=== PATIENT | male | born 1995 | race Caucasian/White ===

== ENCOUNTER 2022-08-05 22:48 | Inpatient (IN) | payer OTHER, SELFPAY ==
[2022-08-05 22:57] VITALS: BP 136/98; PULSE 90; RESP 18; TEMP 36.7; O2SAT 96; BMI 25.0
[2022-08-06 00:23] LABS: MANUAL DIFF FLAG NO
[2022-08-06 00:25] LABS: Basophils Percent Auto 0.4 % (0-2); Eosinophils Absolute Auto 0.3 X10*3/uL (0.0-0.4); Eosinophils Percent Auto 2.5 % (0-4); Hematocrit 45.5 % (42.0-52.0); Hemoglobin 16.2 g/dl (14.0-18.0); Imm Gran Abs Auto 0.03 X10*3/uL (0.00-0.03); Imm Gran Pct Auto 0.3 % (0.0-0.4); Lymphocytes Absolute Auto 2.4 X10*3/uL (1.2-4.9); Lymphocytes Percent Auto 24.2 % (20-40); Mean Corpuscular HGB Conc 35.6 g/dl (31.0-36.0); Mean Corpuscular Hemoglobin 32.2 pg (27.0-33.0); Mean Corpuscular Volume 90.5 fL (80.0-98.0); Mean Platelet Volume 10.5 fL (9.4-12.4); Monocytes Absolute Auto 0.6 X10*3/uL (0.1-1.2); Monocytes Percent Auto 6.1 % (2-11); Neutrophils Absolute Auto 6.7 x10*3/uL (2.0-8.3); Neutrophils Percent Auto 66.5 % (45-73); Platelet Count 213 X10*3/uL (160-400); Red Blood Count 5.03 X10*6/uL (4.60-5.80); Red Cell Distribution Width 11.3 % (11.0-16.0)
[2022-08-06 00:30] LABS: Appearance Urine Clear; Color Urine Dark Yellow; Glucose Urine UA Negative (Negative); Leukocyte Esterase Urine Small (1+) (Negative); Nitrite Urine Negative (Negative); PH 5.5 (5.0-9.0); Specific Gravity - Urine >= 1.030 (1.005-1.025); UMIC TRIGGER UACC YES; Urine Blood Large (3+) (Negative); Urine Ketones Negative (Negative); Urine Protein 300 (3+) mg/dL (Neg-Trace)
[2022-08-06 00:39] LABS: Bacteria Urine Trace (None Seen); Hyaline Casts Urine 0-2 /LPF (0-2); Squamous Epithelial Cell Urine 0-2 /HPF (0-2); UACC Culture Trigger YES; WBC Urine 0-5 /HPF (0-5)
[2022-08-06 00:45] LABS: Alanine Aminotransferase 400 U/L (0-40); Albumin Level 4.6 g/dL (3.5-5.0); Alkaline Phosphatase 68 U/L (39-117); Anion Gap 15 (12-20); Aspartate Amino Transferase 1660 U/L (5-37); Bilirubin Total 0.7 mg/dL (0.0-1.0); Blood Urea Nitrogen 17 mg/dL (9-16); Calcium 9.5 mg/dL (8.4-10.2); Carbon Dioxide 27 mmol/L (22-29); Chloride 104 mmol/L (96-108); Creatinine Clr Calc Pharmacy 94.4; Estimated Glomerular Filt Rate > 60; Glucose Random 82 mg/dL (60-115); Potassium 4.2 mmol/L (3.3-5.1); Sodium 142 mmol/L (135-145); Total Protein 7.1 g/dL (6.5-8.0)
--- NOTE | 2022-08-06 00:48 | ED_ITS ---
HPI - General Adult General Chief complaint: Extremity Injury, Lower Stated complaint: sore swollen legs Time Seen by Provider: 08/06/22 00:27 Source: patient Mode of arrival: ambulatory Limitations: no limitations History of Present Illness HPI narrative: Patient comes emergency room complaining of 4 days of bilateral lower extremity pain and dark color urine. Patient states that 4 days ago, he had a very in [employer] lower extremity workout session. Patient states that the next day he woke up in a lot of pain, and has been able to barely walk because of it. Patient denies any injury. Related Data Allergies Allergy/AdvReac Type Severity Reaction Status Date / Time No Known Allergies Allergy Verified 08/05/22 22:56 [No Known Allergies*] Review of Systems Review of Systems: Constitutional : No Weight loss, No Fever, No Chills, No Night Sweats, No Fatigue, No Malaise ENT/Mouth : No Hearing loss, No Ear Pain, No Nasal Congestion, No Sinus Pain, No Hoarseness, No sore throat, No Rhinorrhea, No Swallowing Difficulty Eyes: No Eye Pain, No Swelling, No Redness, No Foreign Body, No Discharge, No Vision Changes Cardiovascular : No Chest Pain, No SOB, No Dyspnea on Exertion, No Orthopnea, No Edema, No Palpitations Respiratory : No Cough, No Sputum, No Wheezing, No Smoke Exposure, No Dyspnea Gastrointestinal : No Nausea, No Vomiting, No Diarrhea, No Constipation, No abdominal Pain, No Hematochezia, No Melena Genitourinary : Complaining of dark color urine, No Dysuria, No Urinary Frequency, No Hematuria, No Urinary Incontinence, No Urgency, No Flank Pain, No Urinary Flow Changes, No Hesitancy Musculoskeletal : Complaining of lower extremity myalgias bilaterally, especially thighs Skin : No Skin Lesions, No rash Neuro : No Weakness, No Numbness, No Paresthesias, No Loss of Consciousness, No Dizziness, No Headache Psych : No Anxiety/Panic, No Depression, No SI/HI/AH/VH, No Social Issues, Heme/Lymph: No Bruising, No Bleeding,No Lymphadenopathy Endocrine : No Polyuria, No Polydipsia, No Temperature Intolerance PMFSH Social History Social History Advance Directives: No Advance Directives Information Provided: Yes Physical Exam ED Vital Signs: Vital Signs - 24 hr 08/05/22 22:57 Temperature 98.1 F Pulse Rate 90 Respiratory Rate 18 Blood Pressure 136/98 H Pulse Oximetry 96 Oxygen Delivery Method Room Air BMI result Body Mass Index 25.0 Const Other: Appearance: Alert. Oriented X3. No acute distress. Eyes: Pupils equal, round and reactive to light. ENT: Pharynx normal. Neck: Normal inspection. Neck supple. No lymph nodes noted. No crepitus CVS: Normal heart rate and rhythm. Pulses normal. Normal S1 and S2 Respiratory: No respiratory distress. Breath sounds normal. No Wheezing. No rales Abdomen: Soft and nontender. No rigidity. No distention. Skin: Skin warm and dry. Normal skin color. Normal skin turgor. Extremities: No lower extremity edema. No Lacerations. No Rash Neuro: Oriented X 3. No motor deficit. No sensory deficit. Moving all extremities. No slurred speech. CN 2 through 12 grossly intact Psych: calm, cooperative, normal affect Course Course Course Narrative: -of patient's labs are pending. Given the patient's history, patient likely has rhabdomyolysis. Patient being started on IV fluids, morphine for the pain. Depending on the lab work, we will decide if patient may be discharged home or needs to be admitted for rhabdomyolysis Medical Decision Making Medical Decision Making [facility] Narrative: -patient has rhabdomyolysis without kidney injury. -CPK 42,670, AST 1660, ALT 400. Blood and protein present in the urine. Elevated LFTs secondary to rhabdomyolysis, hepatitis is not suspected -patient receiving IV fluids. Given 1 dose of morphine for pain. -I discussed the labs with the patient, agreeable to admission -discussed the patient with Dr. Goodwin, patient being admitted Differential Diagnosis Differential Diagnoses: The differential diagnosis associated with the presentation includes (Rhabdomyolysis, injury) Admission/Observation Consideration of admission/observation: Escalation of care including admission/observation considered Consult Healthcare Provider Management of the patient was discussed with: Hospitalist Lab Data [facility] Lab Attestation statement: I reviewed the patient's lab results. 08/06/22 00:19 08/06/22 00:19 Labs: Lab Results 08/06/22 08/06/22 08/06/22 Range/Units 00:19 00:19 00:24 WBC 10.0 (4.8-10.8) X10*3/uL RBC 5.03 (4.60-5.80) X10*6/uL Hgb 16.2 (14.0-18.0) g/dl Hct 45.5 (42.0-52.0) % MCV 90.5 (80.0-98.0) fL MCH 32.2 (27.0-33.0) pg MCHC 35.6 (31.0-36.0) g/dl RDW 11.3 (11.0-16.0) % Plt Count 213 (160-400) X10*3/uL MPV 10.5 (9.4-12.4) fL Immature Gran % (Auto) 0.3 (0.0-0.4) % Neut % (Auto) 66.5 (45-73) % Lymph % (Auto) 24.2 (20-40) % [place] % (Auto) 6.1 (2-11) % Eos % (Auto) 2.5 (0-4) % Baso % (Auto) 0.4 (0-2) % Lymph # (Auto) 2.4 (1.2-4.9) X10*3/uL [place] # (Auto) 0.6 (0.1-1.2) X10*3/uL Eos # (Auto) 0.3 (0.0-0.4) X10*3/uL Baso # (Auto) 0.0 (0.0-0.2) X10*3/uL Abs Immat Gran (auto) 0.03 (0.00-0.03) X10*3/uL Absolute Neuts (auto) 6.7 (2.0-8.3) x10*3/uL Absolute Nucleated RBC 0.000 (0.0-0.012) X10*3/uL Nucleated RBC % (auto) 0.0 (0.0-0.2) /100WBC Sodium 142 (135-145) mmol/L Potassium 4.2 (3.3-5.1) mmol/L Chloride 104 (96-108) mmol/L Carbon Dioxide 27 (22-29) mmol/L Anion Gap 15 (12-20) BUN 17 H (9-16) mg/dL Creatinine 1.04 (0.5-1.4) mg/dL Estim Creat Clear Calc 94.4 Estimated GFR > 60 Random Glucose 82 (60-115) mg/dL Calcium 9.5 (8.4-10.2) mg/dL Total Bilirubin 0.7 (0.0-1.0) mg/dL AST 1660 H (5-37) U/L ALT 400 H (0-40) U/L Alkaline Phosphatase 68 (39-117) U/L Total Creatine Kinase > 05487 H (38-174) U/L Total Protein 7.1 (6.5-8.0) g/dL Albumin 4.6 (3.5-5.0) g/dL Urine Color Dark Yellow Urine Appearance Clear Urine pH 5.5 (5.0-9.0) Ur Specific [place] >= 1.030 H (1.005-1.025) Urine Protein 300 (3+) H (Neg-Trace) mg/dL Urine Glucose (UA) Negative (Negative) mg/dL Urine Ketones Negative (Negative) mg/dL Urine Blood Large (3+) H (Negative) Urine Nitrite Negative (Negative) Ur Leukocyte Esterase Small (1+) H (Negative) Urine RBC 6-10 H (0-2) /HPF Urine WBC 0-5 (0-5) /HPF Ur Squamous Epith Cells 0-2 (0-2) /HPF Urine Bacteria Trace (None Seen) Hyaline Casts 0-2 (0-2) /LPF Critical Care Time Critical Care Time Critical Care Time: Yes Total Critical Care Time: 60 Attestation: Please follow-up with your primary care physician tomorrow. If you have any worsening or new symptoms, please return to the emergency room or call 911 Discharge Plan Discharge Clinical Impression: Rhabdomyolysis, Transaminitis Patient Disposition: Admitted As Inpatient
[2022-08-06] MEDS: Morphine Sulfate 4 MG/ML CARTRIDGE IVPUSH (01:30)
[2022-08-06] MEDS: 0.9 % Sodium Chloride 2,000 ML 999 ML IVCONT (01:30)
--- NOTE | 2022-08-06 01:38 | P.HPHOSP_ITS ---
History of Present Illness Date of Service: 08/06/22 Chief Complaint: thigh pain 27M no significant pmh presented with bilateral thigh pain. patient had intense work out about 4 days ptp, since then has been feeling more sore than usual post work out. started noticing dark urine, bilateral thigh pain worsened, difficulty ambulating. denies drug use, illness. in ED found to have cpk >40K, renal function normal. Review of Systems Review of Systems: Yes all other systems are reviewed and are negative PMFSH Social History Advance Directives: No Advance Directives Information Provided: Yes Meds Allergies Allergy/AdvReac Type Severity Reaction Status Date / Time No Known Allergies Allergy Verified 08/05/22 22:56 [No Known Allergies*] Active Medications: Current Medications Sodium Chloride (Ns) 2,000 mls @ 999 mls/hr IVCONT .Q2H1M ONE Stop: 08/06/22 02:47 Last Admin: 08/06/22 01:30 Dose: 999 mls/hr Sodium Bicarbonate 150 meq/ (Dextrose) 1,000 mls @ 200 mls/hr IV .Q5H JACQUELYN Sodium Chloride (0.9 % Sodium Chloride Flush 3 Ml Syringe) 3 ml IVFLUSH QSHIFT JACQUELYN Physical Exam Vital Signs and Narrative: Vital Signs: Last Vital Signs Temp 98.1 F 08/05/22 22:57 Pulse 90 08/05/22 22:57 Resp 18 08/05/22 22:57 BP 136/98 H 08/05/22 22:57 Pulse Ox 96 08/05/22 22:57 O2 Del Method Room Air 08/05/22 22:57 BMI result Body Mass Index 25.0 General: AO X 3, no acute distress Resp: CTA bilateral, no accessory muscles used CVS: S1,S2,RRR GI: soft, non tender, non distended Neuro: motor grossly weak Psych: appropriate affect, appropriate insight Results Labs 08/06/22 00:19 08/06/22 00:19 Labs: Laboratory Results - last 24 hr 08/06/22 08/06/22 08/06/22 00:19 00:19 00:24 MCV 90.5 MCH 32.2 MCHC 35.6 RDW 11.3 Plt Count 213 MPV 10.5 Immature Gran % (Auto) 0.3 Neut % (Auto) 66.5 Lymph % (Auto) 24.2 [place] % (Auto) 6.1 Eos % (Auto) 2.5 Baso % (Auto) 0.4 Lymph # (Auto) 2.4 [place] # (Auto) 0.6 Eos # (Auto) 0.3 Baso # (Auto) 0.0 Abs Immat Gran (auto) 0.03 Absolute Neuts (auto) 6.7 Absolute Nucleated RBC 0.000 Nucleated RBC % (auto) 0.0 Anion Gap 15 Estim Creat Clear Calc 94.4 Estimated GFR > 60 Random Glucose 82 Calcium 9.5 Total Bilirubin 0.7 AST 1660 H ALT 400 H Alkaline Phosphatase 68 Total Creatine Kinase > 83856 H Total Protein 7.1 Albumin 4.6 Urine Color Dark Yellow Urine Appearance Clear Urine pH 5.5 Ur Specific [place] >= 1.030 H Urine Protein 300 (3+) H Urine Glucose (UA) Negative Urine Ketones Negative Urine Blood Large (3+) H Urine Nitrite Negative Ur Leukocyte Esterase Small (1+) H Urine RBC 6-10 H Urine WBC 0-5 Ur Squamous Epith Cells 0-2 Urine Bacteria Trace Hyaline Casts 0-2 Assessment and Plan (1) Rhabdomyolysis: Status: Acute Plan 27M presented with bilateral thigh pain, found to have acute rhabdo acute rhabdomyolosis given 2L NS in ED, will start d5w with 150meq bicarb at 200cc/hr monitor bmp, cpk nephro eval low risk dvt full code patient with significant rhabdo, likely to take atleast 2 midnights of intense iv hydration to resolve. Time Spent With Patient Time: Total time managing care of this patient today ____ minutes. Quality Stroke Does the patient have a stroke diagnosis?: No VTE Prior VTE?: No VTE Risk Level:: Medical - low VTE Device Contraindication: Treatment Not Indicated VTE Drug Contraindication: Treatment Not Indicated
[2022-08-06 02:04] VITALS: BP 119/73; PULSE 64; RESP 17; TEMP 36.4; O2SAT 98
[2022-08-06] MEDS: Sodium Bicarbonate 8.4% 150 MEQ in Dextrose 5 % 850 ML 200 MEQ IV (02:24)
--- NOTE | 2022-08-06 07:14 | PC.NURSE ---
pharmacy called a 0715 for sodium bicarbonate infusion.
[2022-08-06 07:16] LABS: Alanine Aminotransferase 316 U/L (0-40); Albumin Level 3.4 g/dL (3.5-5.0); Alkaline Phosphatase 51 U/L (39-117); Anion Gap 9 (12-20); Aspartate Amino Transferase 1278 U/L (5-37); Bilirubin Direct 0.2 mg/dL (0.0-0.5); Bilirubin Total 0.7 mg/dL (0.0-1.0); Blood Urea Nitrogen 16 mg/dL (9-16); Calcium 8.1 mg/dL (8.4-10.2); Carbon Dioxide 34 mmol/L (22-29); Chloride 105 mmol/L (96-108); Creatinine Clr Calc Pharmacy 114.2; Estimated Glomerular Filt Rate > 60; Glucose Random 83 mg/dL (60-115); Sodium 144 mmol/L (135-145); Total Protein 5.3 g/dL (6.5-8.0)
[2022-08-06] MEDS: 0.9 % Sodium Chloride Flush 3 ML SYRINGE IVFLUSH ×3 (07:42→22:20)
--- NOTE | 2022-08-06 08:44 | PHA.MEDREC ---
Pharmacy Consult ? Medication Reconciliation Pharmacy has completed the medication reconciliation.
[2022-08-06] MEDS: 0.9 % Sodium Chloride 1,000 ML 200 ML IVCONT (09:51)
--- NOTE | 2022-08-06 10:36 | PM.EVENT ---
Event Note Date of Service: 08/06/22 Event Note: Seen and evaluated complaining of pain in both his thighs with decrease ROM No concern over compartment syndrome at this point Check viral panel and Phosphorus level nephro following Change IVF to NS 200cc\hr Time Spent With Patient Time: Total time managing care of this patient today ____ minutes.
--- NOTE | 2022-08-06 10:46 | PM.CNNEP ---
History of Present Illness Reason for Consult Consult date: 08/06/22 Chief Complaint Chief complaint: Rhabdo History of Present Illness Narrative: 27M no significant medical issues presented with bilateral thigh pain. He had intense work out about 4 days prior to hospital ER visit. Ever since his work out he has been feeling more sore than usual. He also noticed dark urine, with worsening bilateral thigh pain and difficulty ambulating. He denied drug use or recent viral illness or any other trauma . In the ER he was found to have CPK >40K with normal renal function. He was admitted for further management. Nephrology has been consulted to assist in his clinical management during his current hospital stay. Review of Systems Review of Systems Yes all other systems are reviewed and are negative [facility] Social History Social History Alcohol intake: never Patient Tobacco Use Status: Never used Tobacco Smoked in Last 30 Days: No Advance Directives: No Advance Directives Information Provided: Yes Meds Allergies Allergy/AdvReac Type Severity Reaction Status Date / Time No Known Allergies Allergy Verified 08/05/22 22:56 [No Known Allergies*] Active Medications: Current Medications Sodium Chloride (Ns) 1,000 mls @ 200 mls/hr IVCONT .Q5H [facility] Stop: 08/06/22 13:44 Last Admin: 08/06/22 09:51 Dose: 200 mls/hr Sodium Chloride (0.9 % Sodium Chloride Flush 3 Ml Syringe) 3 ml IVFLUSH QSHIFT [facility] Last Admin: 08/06/22 07:42 Dose: 3 ml Home Medications Medication Instructions Recorded Confirmed Last Taken Type No Known Home Meds 08/06/22 08/06/22 Unknown History Physical Exam Vital Signs: Last Vital Signs Temp 97.6 F 08/06/22 02:04 Pulse 64 08/06/22 02:04 Resp 17 08/06/22 02:04 BP 119/73 08/06/22 02:04 Pulse Ox 98 08/06/22 02:04 O2 Del Method Room Air 08/05/22 22:57 BMI result Body Mass Index 25.0 Const General: no acute distress Orientation/consciousness: patient oriented x3 Eyes EOM: EOMs intact bilaterally Neck Neck: Yes supple Resp Auscultation: diminished lung sounds Cardio Rate: regular rate GI Palpation (GI): Soft to palpation Skin General skin exam: no rashes or lesions noted Neuro General: patient oriented x3 and moves all extremities Extrem General: No edema Results Lab Results 08/06/22 00:19 08/06/22 06:05 Lab results: Chemistry 08/06/22 08/06/22 00:19 06:05 Sodium 142 144 Potassium 4.2 4.0 Carbon Dioxide 27 34 H BUN 17 H 16 Creatinine 1.04 0.86 Calcium 9.5 8.1 L D Hematology 08/06/22 00:19 WBC 10.0 Hgb 16.2 Plt Count 213 Urinalysis 08/06/22 00:24 Urine Color Dark Yellow Urine Appearance Clear Urine pH 5.5 Ur Specific [place] >= 1.030 H Urine Protein 300 (3+) H Urine Glucose (UA) Negative Urine Ketones Negative Urine Blood Large (3+) H Urine Nitrite Negative Ur Leukocyte Esterase Small (1+) H Urine RBC 6-10 H Urine WBC 0-5 Ur Squamous Epith Cells 0-2 Hyaline Casts 0-2 Assessment and Plan (1) Rhabdomyolysis: Status: Acute Time Spent With Patient Time: Rhabdomyolysis following intense work out Renal function normal; Was given NaHCO3 Continue current dose of saline/ hour Cocaine negative; Shall check viral panel/ Phos levels Urine output good. Shall closely follow up Procedures Date of Service Date of Service: 08/06/22
[2022-08-06 12:14] VITALS: BP 116/68; PULSE 55; RESP 16; TEMP 36.4; O2SAT 99
[2022-08-06] MEDS: Morphine Sulfate 2 MG/ML CARTRIDGE IVPUSH (12:56)
--- NOTE | 2022-08-06 13:27 | MHC.CM.PN ---
pt is indepenent lives with mother had no previous serviuce is not covid vax dc plan home no servceis
[2022-08-06 15:29] VITALS: BP 109/59; PULSE 60; RESP 18; TEMP 36.4; O2SAT 97
[2022-08-06 18:58] VITALS: BP 110/62; PULSE 65; RESP 18; TEMP 36.4; O2SAT 98
[2022-08-06] MEDS: Acetaminophen 325 MG TABLET 650 MG PO (22:19)
[2022-08-07 03:47] VITALS: BP 110/59; PULSE 52; RESP 18; TEMP 36.7; O2SAT 98
--- NOTE | 2022-08-07 05:01 | PC.NURSE ---
Pt still c/o leg cramps and stiffness but refused morphine, offered Tylenol po and complied, Dr. Hagen was informed, Tylenol was ordered and given, no further complaints after.
[2022-08-07 06:24] LABS: Alanine Aminotransferase 388 U/L (0-40); Albumin Level 3.8 g/dL (3.5-5.0); Alkaline Phosphatase 50 U/L (39-117); Anion Gap 13 (12-20); Aspartate Amino Transferase 1290 U/L (5-37); Bilirubin Direct 0.3 mg/dL (0.0-0.5); Bilirubin Total 1.1 mg/dL (0.0-1.0); Blood Urea Nitrogen 10 mg/dL (9-16); Calcium 9.2 mg/dL (8.4-10.2); Carbon Dioxide 29 mmol/L (22-29); Chloride 105 mmol/L (96-108); Creatinine Clr Calc Pharmacy 118.3; Estimated Glomerular Filt Rate > 60; Glucose Fasting 92 mg/dL (60-99); Potassium 4.7 mmol/L (3.3-5.1); Sodium 142 mmol/L (135-145); Total Protein 5.8 g/dL (6.5-8.0)
[2022-08-07 06:25] LABS: Hemoglobin 14.9 g/dl (14.0-18.0); Mean Corpuscular HGB Conc 35.5 g/dl (31.0-36.0); Mean Corpuscular Hemoglobin 32.3 pg (27.0-33.0); Mean Corpuscular Volume 91.1 fL (80.0-98.0); Mean Platelet Volume 11.1 fL (9.4-12.4); Platelet Count 186 X10*3/uL (160-400); Red Blood Count 4.61 X10*6/uL (4.60-5.80); Red Cell Distribution Width 11.2 % (11.0-16.0)
[2022-08-07 08:08] VITALS: BP 106/71; PULSE 65; RESP 16; TEMP 36.6; O2SAT 99
--- NOTE | 2022-08-07 10:57 | HO.PM.IMPN ---
Subjective Subjective Date of Service: 08/07/22 Interval History: seen and evaluated complaining of pain in thighs but overall improved CPK still significantly elevated No other overnight events Review of Systems Review of Systems: Yes all other systems are reviewed and are negative Physical Exam Vital Signs: Vital Signs: Last Vital Signs Temp 97.8 F 08/07/22 08:08 Pulse 65 08/07/22 08:08 Resp 16 08/07/22 08:08 BP 106/71 08/07/22 08:08 Pulse Ox 99 08/07/22 08:08 O2 Del Method Room Air 08/07/22 08:08 BMI result Body Mass Index 25.0 Const: Other: Constitutional : Awake, interactive, not in distress Neck : Normal inspection, Supple Cardiovascular : RRR, no JVP, no lower extremity edema Respiratory : good bilateral air entry, no crackles, wheezes or rhonchi Gastrointestinal: soft, lax, Normal bowel sounds, Non tender Skin : Warm, Dry Muscular: mild tenderness over thighs bilaterall but no stiffness with improved ROM Neurological : Alert & oriented x3, No focal deficit Objective Data Active Medications Sodium Chloride (0.9 % Sodium Chloride Flush 3 Ml Syringe) 3 ml IVFLUSH QSHIFT [facility] Last Admin: 08/07/22 09:42 Dose: Not Given Documented By: [facility] Non-Admin Reason: IV Running Tramadol HCl (Tramadol Hcl 50 Mg Tablet) 25 mg PO Q4H PRN PRN Reason: Pain, Moderate (Pain Scale 4-6 Labs 08/07/22 05:21 08/07/22 05:21 Labs: Laboratory Results - last 24 hr 08/06/22 08/07/22 08/07/22 06:05 05:21 05:21 MCV 91.1 MCH 32.3 MCHC 35.5 RDW 11.2 Plt Count 186 MPV 11.1 Absolute Nucleated RBC 0.000 Nucleated RBC % (auto) 0.0 Anion Gap 13 Estim Creat Clear Calc 118.3 Estimated GFR > 60 Fasting Glucose 92 Calcium 9.2 D Phosphorus 4.0 Total Bilirubin 1.1 H Direct Bilirubin 0.3 AST 1290 H ALT 388 H Alkaline Phosphatase 50 Total Creatine Kinase > 21100 H Total Protein 5.8 L Albumin 3.8 Microbiology Microbiology Results: Microbiology 08/06/22 Unknown Urine Culture - Final Urine clean catch - Urine [place] No growth. Assessment and Plan (1) Rhabdomyolysis: Status: Acute (2) Transaminitis: Status: Acute Plan 27M presented with bilateral thigh pain, found to have acute rhabdo acute rhabdomyolosis CPK still >64589 continue IVF Cr stable nephro following monitor BMP Transaminitis from rhabdo stable. continue to monitor LFT low risk dvt, early ambulation full code patient with significant rhabdo, likely to take atleast 2 midnights of intense iv hydration to resolve. Time Spent With Patient Time: Total time managing care of this patient today ____ minutes. Quality Stroke Does the patient have a stroke diagnosis?: No VTE Prior VTE?: No VTE Risk Level:: Medical - low VTE Device Contraindication: Treatment Not Indicated VTE Drug Contraindication: Treatment Not Indicated
--- NOTE | 2022-08-07 11:25 | PM.PNNEP ---
Subjective Subjective Date of Service: 08/07/22 Interval history: Seen AM. All recent data reviewed Physical Exam Vital Signs: Vital Signs: Last Vital Signs Temp 97.8 F 08/07/22 08:08 Pulse 65 08/07/22 08:08 Resp 16 08/07/22 08:08 BP 106/71 08/07/22 08:08 Pulse Ox 99 08/07/22 08:08 O2 Del Method Room Air 08/07/22 08:08 BMI result Body Mass Index 25.0 Const: General: comfortable Orientation/consciousness: patient oriented x3 Eyes: EOM: EOMs intact bilaterally Neck: Neck: Yes supple Resp: Auscultation: diminished lung sounds Cardio: Rate: regular rate GI: Palpation (GI): Soft to palpation Skin: General skin exam: no rashes or lesions noted Neuro: General: patient oriented x3 and moves all extremities Objective Data Labs 08/07/22 05:21 08/07/22 05:21 Labs: Laboratory Results - last 24 hr 08/07/22 08/07/22 05:21 05:21 WBC 7.0 RBC 4.61 Hgb 14.9 Hct 42.0 MCV 91.1 MCH 32.3 MCHC 35.5 RDW 11.2 Plt Count 186 MPV 11.1 Absolute Nucleated RBC 0.000 Nucleated RBC % (auto) 0.0 Sodium 142 Potassium 4.7 Chloride 105 Carbon Dioxide 29 Anion Gap 13 BUN 10 Creatinine 0.83 Estim Creat Clear Calc 118.3 Estimated GFR > 60 Fasting Glucose 92 Calcium 9.2 D Total Bilirubin 1.1 H Direct Bilirubin 0.3 AST 1290 H ALT 388 H Alkaline Phosphatase 50 Total Creatine Kinase > 14891 H Total Protein 5.8 L Albumin 3.8 Microbiology Microbiology Results: Microbiology 08/06/22 Unknown Urine clean catch - Urine [place] Urine Culture - Final No growth. Procedures Date of Service Date of Service: 08/07/22 Assessment & Plan Assessment and plan (1) Rhabdomyolysis: Status: Acute Assessment and Plan: Rhabdomyolysis following intense work out Renal function normal; Was given NaHCO3 initially Continue current dose of saline/ hour Cocaine negative; Urine output good Shall closely follow up Progress Note: Quality Stroke Does the patient have a stroke diagnosis?: No
[2022-08-07] MEDS: 0.9 % Sodium Chloride 1,000 ML 200 ML IVCONT (13:01)
[2022-08-07 15:48] VITALS: BP 120/58; PULSE 62; RESP 17; TEMP 37.1; O2SAT 98
[2022-08-07 19:34] VITALS: BP 128/69; PULSE 95; RESP 16; TEMP 36.7; O2SAT 97
[2022-08-07] MEDS: traMADoL HCL 50 MG TABLET 25 MG PO (20:01)
[2022-08-07] MEDS: 0.9 % Sodium Chloride 1,000 ML 150 ML IVCONT (22:18)
[2022-08-08 03:26] VITALS: BP 109/52; PULSE 53; RESP 16; TEMP 36.1; O2SAT 99
[2022-08-08 04:18] LABS: HBS Num1 0.32 mIU/mL (0-7.99); HBc Num1 0.04 S/CO (0.00-0.79); HBsAGNum1 0.39 S/CO (0.00-0.99); Hepatitis A Antibody IgM 0.17 Index (0-0.79); Hepatitis B Core Antibody Nonreactive (Nonreactive); Hepatitis B Surface Antigen Negative (Negative); ~HepC Num1 0.11 S/CO (0.00-0.79); ~Hepatitis A Antibody IgM Nonreactive (Nonreactive); ~Hepatitis B Surface Antibody NONREACTIVE (Nonreactive); ~Hepatitis C Antibody Nonreactive (Nonreactive)
[2022-08-08] MEDS: 0.9 % Sodium Chloride 1,000 ML 150 ML IVCONT ×3 (04:37→19:50)
[2022-08-08] MEDS: traMADoL HCL 50 MG TABLET 25 MG PO ×2 (06:05→22:06)
[2022-08-08 07:29] LABS: Alanine Aminotransferase 352 U/L (0-40); Albumin Level 3.6 g/dL (3.5-5.0); Alkaline Phosphatase 46 U/L (39-117); Anion Gap 8 (12-20); Aspartate Amino Transferase 908 U/L (5-37); Bilirubin Direct 0.3 mg/dL (0.0-0.5); Bilirubin Total 1.1 mg/dL (0.0-1.0); Blood Urea Nitrogen 11 mg/dL (9-16); Calcium 8.9 mg/dL (8.4-10.2); Carbon Dioxide 31 mmol/L (22-29); Chloride 107 mmol/L (96-108); Creatinine Clr Calc Pharmacy 112.9; Estimated Glomerular Filt Rate > 60; Glucose Random 85 mg/dL (60-115); Potassium 4.4 mmol/L (3.3-5.1); Sodium 142 mmol/L (135-145); Total Protein 5.7 g/dL (6.5-8.0)
[2022-08-08 07:54] VITALS: BP 117/61; PULSE 57; RESP 18; TEMP 36.7; O2SAT 98
--- NOTE | 2022-08-08 09:50 | P.PNIM_ITS ---
Subjective Subjective Date of Service: 08/08/22 Interval History: still with thigh pain, improving Physical Exam Vital Signs: Vital Signs: Last Vital Signs Temp 98.1 F 08/08/22 07:54 Pulse 57 08/08/22 07:54 Resp 18 08/08/22 07:54 BP 117/61 08/08/22 07:54 Pulse Ox 98 08/08/22 07:54 O2 Del Method Room Air 08/08/22 07:54 O2 Flow Rate 97 08/07/22 19:34 BMI result Body Mass Index 25.0 General: AO X 3, no acute distress Resp: CTA bilateral, no accessory muscles used CVS: S1,S2,RRR GI: soft, non tender, non distended Neuro: motor grossly intact, alert Psych: appropriate affect, appropriate insight Objective Data Active Medications Sodium Chloride (Ns) 1,000 mls @ 150 mls/hr IVCONT .Q6H40M [facility] Stop: 08/09/22 04:42 Last Admin: 08/08/22 04:37 Dose: 150 mls/hr Documented By: ELEAZAR Sodium Chloride (0.9 % Sodium Chloride Flush 3 Ml Syringe) 3 ml IVFLUSH [facility] Last Admin: 08/08/22 06:32 Dose: Not Given Documented By: [facility] Non-Admin Reason: IV Running Tramadol HCl (Tramadol Hcl 50 Mg Tablet) 25 mg PO Q4H PRN PRN Reason: Pain, Moderate (Pain Scale 4-6 Last Admin: 08/08/22 06:05 Dose: 25 mg Documented By: ELEAZAR Labs 08/07/22 05:21 08/08/22 06:05 Labs: Laboratory Results - last 24 hr 08/07/22 08/08/22 08/08/22 13:23 06:05 06:05 Anion Gap Cancelled 8 L Estim Creat Clear Calc Cancelled 112.9 Estimated GFR Cancelled > 60 Random Glucose Cancelled 85 Calcium Cancelled 8.9 Total Bilirubin 1.1 H Direct Bilirubin 0.3 AST 908 H ALT 352 H Alkaline Phosphatase 46 Total Creatine Kinase 14455 H Total Protein 5.7 L Albumin 3.6 Hepatitis A IgM Ab Nonreactive Hep Bs Antigen Negative Hep Bs Antibody NONREACTIVE Hep B Core Total Ab Nonreactive Hepatitis C Ab (EIA) Nonreactive Microbiology Microbiology Results: Microbiology 08/06/22 Unknown Urine Culture - Final Urine clean catch - Urine [place] No growth. Assessment and Plan (1) Rhabdomyolysis: Status: Acute (2) Transaminitis: Status: Acute Plan 27M presented with bilateral thigh pain, found to have acute rhabdo acute rhabdomyolosis CPK 06754 (previous >42K continue IVF Cr stable nephro following monitor BMP, cpk low risk dvt, early ambulation full code reason for continued hospitalization: aggressive iv hydration, risk for jerilyn with rhabdo Time Spent With Patient Time: Total time managing care of this patient today ____ minutes. Quality Stroke Does the patient have a stroke diagnosis?: No VTE Prior VTE?: No VTE Risk Level:: Medical - low VTE Device Contraindication: Treatment Not Indicated VTE Drug Contraindication: Treatment Not Indicated
--- NOTE | 2022-08-08 12:36 | PM.PNNEP ---
Subjective Subjective Date of Service: 08/08/22 Interval history: still with thigh pain, improving; Renal function normal Physical Exam Vital Signs: Vital Signs: Last Vital Signs Temp 98.1 F 08/08/22 07:54 Pulse 57 08/08/22 07:54 Resp 18 08/08/22 07:54 BP 117/61 08/08/22 07:54 Pulse Ox 98 08/08/22 07:54 O2 Del Method Room Air 08/08/22 07:54 O2 Flow Rate 97 08/07/22 19:34 BMI result Body Mass Index 25.0 Const: General: no acute distress Orientation/consciousness: patient oriented x3 Eyes: EOM: EOMs intact bilaterally Neck: Neck: Yes supple Resp: Auscultation: diminished lung sounds Cardio: Rate: regular rate GI: Palpation (GI): Soft to palpation Neuro: General: patient oriented x3 and moves all extremities Objective Data Labs 08/07/22 05:21 08/08/22 06:05 Labs: Laboratory Results - last 24 hr 08/07/22 08/08/22 08/08/22 13:23 06:05 06:05 Sodium Cancelled 142 Potassium Cancelled 4.4 Chloride Cancelled 107 Carbon Dioxide Cancelled 31 H Anion Gap Cancelled 8 L BUN Cancelled 11 Creatinine Cancelled 0.87 Estim Creat Clear Calc Cancelled 112.9 Estimated GFR Cancelled > 60 Random Glucose Cancelled 85 Calcium Cancelled 8.9 Total Bilirubin 1.1 H Direct Bilirubin 0.3 AST 908 H ALT 352 H Alkaline Phosphatase 46 Total Creatine Kinase 42408 H Total Protein 5.7 L Albumin 3.6 Hepatitis A IgM Ab Nonreactive Hep Bs Antigen Negative Hep Bs Antibody NONREACTIVE Hep B Core Total Ab Nonreactive Hepatitis C Ab (EIA) Nonreactive Microbiology Microbiology Results: Microbiology 08/06/22 Unknown Urine clean catch - Urine [place] Urine Culture - Final No growth. Procedures Date of Service Date of Service: 08/08/22 Assessment & Plan Assessment and plan (1) Rhabdomyolysis: Status: Acute Assessment and Plan: Rhabdomyolysis following intense work out Renal function normal; Was given NaHCO3 initially Continue current dose of saline/ hour Cocaine negative; Urine output good Shall closely follow up Progress Note: Quality Stroke Does the patient have a stroke diagnosis?: No
--- NOTE | 2022-08-08 14:41 | MHC.CM.PN ---
per rounds pt not ready for dc dc plan remains home
[2022-08-08 15:24] VITALS: BP 128/60; PULSE 60; RESP 15; TEMP 36.4; O2SAT 99
[2022-08-08 19:33] VITALS: BP 127/60; PULSE 68; RESP 16; TEMP 36.4; O2SAT 99
[2022-08-09] MEDS: 0.9 % Sodium Chloride 1,000 ML 150 ML IVCONT ×4 (02:19→23:24)
[2022-08-09 03:21] VITALS: BP 118/58; PULSE 55; RESP 14; TEMP 36; O2SAT 98
[2022-08-09 07:21] LABS: Anion Gap 13 (12-20); Blood Urea Nitrogen 10 mg/dL (9-16); Carbon Dioxide 27 mmol/L (22-29); Chloride 107 mmol/L (96-108); Creatinine Clr Calc Pharmacy 136.4; Estimated Glomerular Filt Rate > 60; Glucose Fasting 83 mg/dL (60-99); Potassium 3.8 mmol/L (3.3-5.1); Sodium 143 mmol/L (135-145)
[2022-08-09 07:50] VITALS: BP 118/68; PULSE 53; RESP 18; TEMP 36.3; O2SAT 97
--- NOTE | 2022-08-09 09:21 | HO.PM.IMPN ---
Subjective Subjective Date of Service: 08/09/22 Interval History: still with thigh pain, improving Physical Exam Vital Signs: Vital Signs: Last Vital Signs Temp 97.3 F 08/09/22 07:50 Pulse 53 08/09/22 07:50 Resp 18 08/09/22 07:50 BP 118/68 08/09/22 07:50 Pulse Ox 97 08/09/22 07:50 O2 Del Method Room Air 08/09/22 07:50 O2 Flow Rate 97 08/07/22 19:34 BMI result Body Mass Index 25.0 Const: General: no acute distress Orientation/consciousness: patient oriented x3 Eyes: EOM: EOMs intact bilaterally Neck: Neck: Yes supple Resp: Auscultation: diminished lung sounds Cardio: Rate: regular rate GI: Palpation (GI): Soft to palpation Neuro: General: patient oriented x3 and moves all extremities Objective Data Active Medications Sodium Chloride (0.9 % Sodium Chloride Flush 3 Ml Syringe) 3 ml IVFLUSH QSHIFT [facility] Last Admin: 08/09/22 09:00 Dose: Not Given Documented By: OBDULIO Non-Admin Reason: IV Running Tramadol HCl (Tramadol Hcl 50 Mg Tablet) 25 mg PO Q4H PRN PRN Reason: Pain, Moderate (Pain Scale 4-6 Last Admin: 08/08/22 22:06 Dose: 25 mg Documented By: ELEAZAR Labs 08/07/22 05:21 08/09/22 05:38 Labs: Laboratory Results - last 24 hr 08/09/22 05:38 Anion Gap 13 Estim Creat Clear Calc 136.4 Estimated GFR > 60 Fasting Glucose 83 Calcium 9.0 Total Creatine Kinase 85761 H Assessment and Plan (1) Rhabdomyolysis: Status: Acute (2) Transaminitis: Status: Deleted Plan 27M presented with bilateral thigh pain, found to have acute rhabdo acute rhabdomyolosis CPK about 22K (previous >42K continue IVF Cr stable nephro following monitor BMP, cpk low risk dvt, early ambulation full code reason for continued hospitalization: aggressive iv hydration, risk for jerilyn with rhabdo Time Spent With Patient Time: Total time managing care of this patient today ____ minutes. Quality Stroke Does the patient have a stroke diagnosis?: No VTE Prior VTE?: No VTE Risk Level:: Medical - low VTE Device Contraindication: Treatment Not Indicated VTE Drug Contraindication: Treatment Not Indicated
--- NOTE | 2022-08-09 11:01 | PM.PNNEP ---
Subjective Subjective Date of Service: 08/09/22 Interval history: Feels improved. CPK improving; Renal function remains normal Physical Exam Vital Signs: Vital Signs: Last Vital Signs Temp 97.3 F 08/09/22 07:50 Pulse 53 08/09/22 07:50 Resp 18 08/09/22 07:50 BP 118/68 08/09/22 07:50 Pulse Ox 97 08/09/22 07:50 O2 Del Method Room Air 08/09/22 07:50 O2 Flow Rate 97 08/07/22 19:34 BMI result Body Mass Index 25.0 Const: General: comfortable Orientation/consciousness: patient oriented x3 Eyes: EOM: EOMs intact bilaterally Neck: Neck: Yes supple Resp: Auscultation: diminished lung sounds Cardio: Rate: regular rate GI: Palpation (GI): Soft to palpation Skin: General skin exam: no rashes or lesions noted Neuro: General: patient oriented x3 and moves all extremities Objective Data Labs 08/07/22 05:21 08/09/22 05:38 Labs: Laboratory Results - last 24 hr 08/09/22 05:38 Sodium 143 Potassium 3.8 Chloride 107 Carbon Dioxide 27 Anion Gap 13 BUN 10 Creatinine 0.72 Estim Creat Clear Calc 136.4 Estimated GFR > 60 Fasting Glucose 83 Calcium 9.0 Total Creatine Kinase 45043 H Microbiology Microbiology Results: Microbiology 08/06/22 Unknown Urine clean catch - Urine villa top Urine Culture - Final No growth. Procedures Date of Service Date of Service: 08/09/22 Assessment & Plan Assessment and plan (1) Rhabdomyolysis: Status: Acute Assessment and Plan: Rhabdomyolysis following intense work out Renal function normal; Was given NaHCO3 initially Continue current dose of saline/ hour Cocaine negative; Urine output good CPK improving; Likely could be D/Masood tomorrow Shall closely follow up Progress Note: Quality Stroke Does the patient have a stroke diagnosis?: No
[2022-08-09 15:21] VITALS: BP 119/55; PULSE 60; RESP 18; TEMP 36.4; O2SAT 99
[2022-08-09 20:00] VITALS: BP 127/65; PULSE 85; RESP 18; TEMP 37.1; O2SAT 97
[2022-08-10 04:00] VITALS: BP 128/75; PULSE 66; RESP 18; TEMP 36.7; O2SAT 98
[2022-08-10] MEDS: 0.9 % Sodium Chloride 1,000 ML 150 ML IVCONT ×3 (05:24→17:29)
[2022-08-10 05:31] LABS: Anion Gap 9 (12-20); Blood Urea Nitrogen 10 mg/dL (9-16); Carbon Dioxide 29 mmol/L (22-29); Chloride 107 mmol/L (96-108); Creatinine Clr Calc Pharmacy 129.2; Estimated Glomerular Filt Rate > 60; Glucose Fasting 92 mg/dL (60-99); Potassium 3.9 mmol/L (3.3-5.1); Sodium 141 mmol/L (135-145)
[2022-08-10 08:09] VITALS: BP 122/64; PULSE 56; RESP 16; TEMP 36.8; O2SAT 98
--- NOTE | 2022-08-10 09:06 | PM.PNNEP ---
Subjective Subjective Date of Service: 08/10/22 Interval history: Feels improved. CPK improving; Renal function remains normal Physical Exam Vital Signs: Vital Signs: Last Vital Signs Temp 98.3 F 08/10/22 08:09 Pulse 56 08/10/22 08:09 Resp 16 08/10/22 08:09 BP 122/64 08/10/22 08:09 Pulse Ox 98 08/10/22 08:09 O2 Del Method Room Air 08/10/22 08:09 O2 Flow Rate 97 08/07/22 19:34 BMI result Body Mass Index 25.0 Const: Other: Constitutional : Awake, interactive, not in distress Neck : Normal inspection, Supple Cardiovascular : RRR, no JVP, no lower extremity edema Respiratory : good bilateral air entry, no crackles, wheezes or rhonchi Gastrointestinal: soft, lax, Normal bowel sounds, Non tender Skin : Warm, Dry Muscular: mild tenderness over thighs bilaterall but no stiffness with improved ROM Neurological : Alert & oriented x3, No focal deficit Objective Data Labs 08/07/22 05:21 08/10/22 04:41 Labs: Laboratory Results - last 24 hr 08/10/22 04:41 Sodium 141 Potassium 3.9 Chloride 107 Carbon Dioxide 29 Anion Gap 9 L BUN 10 Creatinine 0.76 Estim Creat Clear Calc 129.2 Estimated GFR > 60 Fasting Glucose 92 Calcium 9.0 Total Creatine Kinase 05736 H Microbiology Microbiology Results: Microbiology 08/06/22 Unknown Urine clean catch - Urine villa top Urine Culture - Final No growth. Procedures Date of Service Date of Service: 08/10/22 Assessment & Plan Assessment and plan (1) Rhabdomyolysis: Status: Acute Assessment and Plan: Rhabdomyolysis following intense work out Renal function normal; Was given NaHCO3 initially Continue current dose of saline/ hour Cocaine negative; Urine output good CPK improving; OK to DC IVF DC planning Time Spent With Patient Time: Total time managing care of this patient today ____ minutes. Progress Note: Quality Stroke Does the patient have a stroke diagnosis?: No
--- NOTE | 2022-08-10 09:15 | HO.PM.IMPN ---
Subjective Subjective Date of Service: 08/10/22 Interval History: improved Physical Exam Vital Signs: Vital Signs: Last Vital Signs Temp 98.3 F 08/10/22 08:09 Pulse 56 08/10/22 08:09 Resp 16 08/10/22 08:09 BP 122/64 08/10/22 08:09 Pulse Ox 98 08/10/22 08:09 O2 Del Method Room Air 08/10/22 08:09 O2 Flow Rate 97 08/07/22 19:34 BMI result Body Mass Index 25.0 General: AO X 3, no acute distress Resp: CTA bilateral, no accessory muscles used CVS: S1,S2,RRR GI: soft, non tender, non distended Neuro: motor grossly intact, alert Psych: appropriate affect, appropriate insight Objective Data Active Medications Sodium Chloride (Ns) 1,000 mls @ 150 mls/hr IVCONT .Q6H40M [facility] Last Admin: 08/10/22 05:24 Dose: 150 mls/hr Documented By: BRINA Sodium Chloride (0.9 % Sodium Chloride Flush 3 Ml Syringe) 3 ml IVFLUSH QSHIFT [facility] Last Admin: 08/10/22 07:56 Dose: Not Given Documented By: BRITTA Non-Admin Reason: IV Running Tramadol HCl (Tramadol Hcl 50 Mg Tablet) 25 mg PO Q4H PRN PRN Reason: Pain, Moderate (Pain Scale 4-6 Last Admin: 08/08/22 22:06 Dose: 25 mg Documented By: ELEAZAR Labs 08/07/22 05:21 08/10/22 04:41 Labs: Laboratory Results - last 24 hr 08/10/22 04:41 Anion Gap 9 L Estim Creat Clear Calc 129.2 Estimated GFR > 60 Fasting Glucose 92 Calcium 9.0 Total Creatine Kinase 19476 H Assessment and Plan (1) Rhabdomyolysis: Status: Acute (2) Transaminitis: Status: Deleted Plan 27M presented with bilateral thigh pain, found to have acute rhabdo acute rhabdomyolosis CPK about 13K (previous >42K), goal <10K for discharge continue IVF Cr stable nephro following monitor BMP, cpk low risk dvt, early ambulation full code reason for continued hospitalization: aggressive iv hydration, risk for jerilyn with rhabdo Time Spent With Patient Time: Total time managing care of this patient today ____ minutes. Quality Stroke Does the patient have a stroke diagnosis?: No VTE Prior VTE?: No VTE Risk Level:: Medical - low VTE Device Contraindication: Treatment Not Indicated VTE Drug Contraindication: Treatment Not Indicated
[2022-08-10 20:00] VITALS: BP 130/81; PULSE 52; RESP 18; TEMP 36.9; O2SAT 99
[2022-08-11] MEDS: 0.9 % Sodium Chloride 1,000 ML 150 ML IVCONT ×2 (00:20→06:27)
[2022-08-11 03:12] VITALS: BP 122/63; PULSE 57; RESP 16; TEMP 36.2; O2SAT 99
--- NOTE | 2022-08-11 07:56 | PM.DS ---
DS: Providers Provider Date of Service: 08/11/22 Date of admission: 08/06/22 01:26 Primary care physician: Shalini Hernandez NP Consults: 08/06/22 01:26 Consult to Nephrology Routine Consulting Provider: Gallo Sumner Reason for consultation: rhabdo DS: Diagnosis Discharge Diagnosis (1) Rhabdomyolysis: Status: Acute DS: Summary Hospital Course Hospital Course: from initial hpi: Chief Complaint: thigh pain 27M no significant pmh presented with bilateral thigh pain. patient had intense work out about 4 days ptp, since then has been feeling more sore than usual post work out. started noticing dark urine, bilateral thigh pain worsened, difficulty ambulating. denies drug use, illness. in ED found to have cpk >40K, renal function normal. hospital course: patient was admitted with acute rhabdomyolosis. he was treated with aggressive IV hydration. his renal function remained normal throughout admission. at time of discharge cpk is about 7000. muscle soreness improved. patient will be discharged home and should continue to drink plenty of fluids. Time Spent with Patient Time attestation: Total time managing care of this patient today ____ minutes. Discharge coordination time: Greater than 30 minutes Quality: Safe Use of Opioids Does Pt have an Active Cancer Diagnosis on the Problem List?: No Quality: Stroke Does the patient have a stroke diagnosis?: No Physical Exam Vital Signs: Vital Signs: Last Vital Signs Temp 97.2 F 08/11/22 03:12 Pulse 57 08/11/22 03:12 Resp 16 08/11/22 03:12 BP 122/63 08/11/22 03:12 Pulse Ox 99 08/11/22 03:12 O2 Del Method Room Air 08/11/22 03:12 O2 Flow Rate 97 08/07/22 19:34 BMI result Body Mass Index 25.0 General: AO X 3, no acute distress Resp: CTA bilateral, no accessory muscles used CVS: S1,S2,RRR GI: soft, non tender, non distended Neuro: motor grossly intact, alert Psych: appropriate affect, appropriate insight DS: Data Data Completed and Pending Labs on day of discharge: Laboratory Results - last 24 hr 08/11/22 06:09 Total Creatine Kinase 7754 H Discharge Plan Discharge Anticipated Discharge Date/Time: 08/11/22 07:55 Patient Disposition: Home, Self-Care Discharge Diagnosis: rhabdo Referrals: Shalini Hernandez NP [Primary Care Provider] - 1 Week Discharge Medications: No Action No Known Home Meds Discharge Orders: Discharge Order (Routine); Ordered 08/11/22 Ordered By: Yonatan Goodwin Diet: Advance to usual diet Activity on Discharge: As tolerated Stand Alone Forms: Patient Portal Discharge page Care Plan Goals: prevent kidney damage Health Concerns: rhabdo Plan of Treatment: drink plenty of fluids Assessment: see above
[2022-08-11 07:58] VITALS: BP 126/64; PULSE 65; RESP 16; TEMP 36.3; O2SAT 99
--- NOTE | 2022-08-11 09:29 | MHC.CM.NN ---
PATIENT IS DC HOME - SELF CARE RN AWARE OF PLAN.
--- NOTE | 2022-08-11 10:31 | MHC.CM.PN ---
PATIENT IS DC HOME - SELF CARE RN AWARE OF PLAN
== END 2022-08-11 10:55 | disposition home or self-care (01) | DRG 351 ==
LOC: HO.ED 08-06 01:33 → HO.EDOVER 08-06 01:39 → HO.S3 08-06 11:03
PROVIDERS: Student in an Organized Health Care Education/Training Program; Admitting Provider Internal Medicine; Emergency Provider Emergency Medicine; PCP Nurse Practitioner Family; Visit Provider Internal Medicine
DX: M62.82 Rhabdomyolysis (principal)
CPT/HCPCS: 36415; 80048; 80053; 80076; 81001; 82550; 84100; 85025; 85027; 86704; 86706; 86709; 86803; 87086; 87340; 99284; J2270